=== PATIENT | male | born 1970 | race Caucasian/White ===

== ENCOUNTER 2018-07-07 13:11 | Emergency (ER) | payer OTHER, SELFPAY ==
[2018-07-07] VITALS (25 sets, daily range): BP systolic 104–136; BP diastolic 61–98; PULSE 70–108; RESP 9–22; TEMP 36.8; O2SAT 93–98
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
[2018-07-07 14:10] LABS: Abs Immature Grans 0.03 k/cumm (0.0-0.09); Absolute Basophil Count 0.03 k/cumm (0.0-0.2); Absolute Eosinophil Count 0.08 k/cumm (0.0-0.7); Absolute Lymphocyte Count 1.05 k/cumm (1.2-3.4); Absolute Neutrophil Count 10.59 k/cumm (1.2-6.7); Basophils % 0.2; Eosinophils % 0.6; HCT 40.1 % (40.0-50.0); HGB 13.3 g/dL (13.5-17.5); Immature Grans % 0.2; Lymphocytes % 8.2; Mean Corp. HGB Concentration 33.2 g/dL (32.0-36.0); Mean Corpuscular Hemoglobin 29.7 pg (27.0-33.0); Mean Corpuscular Volume 89.5 fL (80-95); Mean Platelet Volume 10.3 fL (8.0-11.0); Monocytes % 7.8; Platelet Count 272 x1000/uL (130-400); RBC 4.48 m/cumm (4.50-6.00); RBC Distribution Width 14.7 % (11.8-14.1); White Blood Cell Count 12.76 k/cumm (4.4-10.8)
[2018-07-07 14:27] LABS: ALT 19 U/L (12-78); AST 25 U/L (15-37); Albumin 3.5 g/dL (3.4-5.0); Alkaline Phosphatase 88 U/L (46-116); Anion Gap 10.4 mmol/L (3-11); BUN 13 mg/dL (7-18); Bilirubin, Total 0.4 mg/dL (0.2-1.0); CO2 28.6 mmol/L (21.0-32.0); CREATININE 1.19 mg/dL (0.70-1.30); Calcium 8.7 mg/dL (8.5-10.1); Chloride 97 mmol/L (98-107); Glucose 129 mg/dL (70-100); Potassium 3.7 mmol/L (3.5-5.1); Sodium 136 mmol/L (136-145)
[2018-07-07] MEDS: Normal Saline 1,000 ML 1000 ML IV (14:27)
--- NOTE | 2018-07-07 14:27 | DI.RAD_ITS ---
SYMPTOMS/DIAGNOSIS: SYNCOPE PA AND LATERAL CHEST: There are no prior comparison exams. The heart size is normal. The aorta is tortuous. The lungs appear clear. IMPRESSION: No acute abnormality.
[2018-07-07 14:34] LABS: Troponin I < 0.02 ng/mL (0.00-0.06)
[2018-07-07 14:43] LABS: Prothrombin Time 19.9 sec (9.3-11.0)
[2018-07-07 14:54] LABS: D-Dimer 292 ng/mlFEU (<500)
[2018-07-07] MEDS: Oseltamivir 75 MG CAP PO (16:03)
--- NOTE | 2018-07-07 16:04 | NUR.NOTE ---
patient medicated per MD ORDER Nursing Note:
== END 2018-07-07 16:24 | disposition home or self-care (01) ==
PROVIDERS: Emergency Provider Student in an Organized Health Care Education/Training Program; PCP Physician Assistant Medical
DX: R55 Syncope and collapse (principal); J11.89 Influenza due to unidentified influenza virus with other manifestations; Z53.29 Procedure and treatment not carried out because of patient's decision for other reasons; Z86.718 Personal history of other venous thrombosis and embolism; Z79.01 Long term (current) use of anticoagulants
CPT/HCPCS: 36415; 36416; 80053; 82962; 87449; 93005; 96360; 99285; 71046; 84484; 85025; 85379; 85610; 93010; 99284

== ENCOUNTER 2020-01-27 11:03 | Outpatient (REF) | payer OTHER, SELFPAY ==
[2020-01-27 21:30] LABS: Absolute Basophil Count 0.08 10^3/uL (0.0-0.2); Absolute Eosinophil Count 0.52 10^3/uL (0.0-0.7); Absolute Lymphocyte Count 2.58 10^3/uL (1.2-3.4); Absolute Monocyte Count 0.74 10^3/uL (0.1-0.8); Absolute Neutrophil Count 2.84 10^3/uL (1.2-6.7); Basophils % 1.2; Eosinophils % 7.7; HCT 39.4 % (40.0-50.0); HGB 12.8 g/dL (13.5-17.5); Lymphocytes % 38.2; MCH 30.3 pg (27.0-33.0); MCHC 32.5 % (32.0-36.0); MCV 93.1 fL (80-95); MPV 10.7 fL (8.0-11.0); Monocytes % 10.9; Nucleated RBC 0 %; Platelet Count 298 10^3/uL (130-400); RBC 4.23 10^6/uL (4.36-5.78); RDW 13.7 % (11.8-14.1); WBC 6.76 10^3/uL (4.4-10.8)
[2020-01-27 21:54] LABS: ALT 24 U/L (16-63); AST 24 U/L (15-37); Albumin 3.8 g/dL (3.4-5.0); Alkaline Phosphatase 83 U/L (46-116); BUN 17 mg/dL (7-18); Bilirubin, Total 0.6 mg/dL (0.2-1.0); CREATININE 0.82 mg/dL (0.70-1.30); Chloride 103 mmol/L (98-107); Glucose 91 mg/dL (74-106); Potassium 5.1 mmol/L (3.5-5.1); Sodium 140 mmol/L (136-145); Total Protein 7.3 g/dL (6.4-8.2)
== END 2020-01-27 11:23 ==
LOC: NCHCN 11:03
PROVIDERS: PCP Physician Assistant Medical; Visit Provider Physician Assistant Medical
DX: R60.0 Localized edema (principal)
CPT/HCPCS: 80053; 85025

== ENCOUNTER 2021-03-14 10:11 | Outpatient (REF) | payer OTHER, SELFPAY ==
[2021-03-14 15:44] LABS: INR 2.5 (0.9-1.1); Prothrombin Time 24.8 sec (9.3-11.0)
[2021-03-14 16:41] LABS: ALT 24 U/L (16-63); AST 24 U/L (15-37); Albumin 4.1 g/dL (3.4-5.0); Alkaline Phosphatase 85 U/L (46-116); Anion Gap 8.1 mmol/L (3-11); BUN 22 mg/dL (7-18); Bilirubin, Total 0.4 mg/dL (0.2-1.0); CO2 25.9 mmol/L (21.0-32.0); CREATININE 0.9 mg/dL (0.70-1.30); Calcium 9.2 mg/dL (8.5-10.1); Calculated LDL 113 mg/dL (<100); Chloride 104 mmol/L (98-107); Cholesterol 196 mg/dL (<200); Glucose 104 mg/dL (74-106); HDL Cholesterol 76 mg/dL (40-60); Potassium 4.5 mmol/L (3.5-5.1); Sodium 138 mmol/L (136-145); Total Protein 7.6 g/dL (6.4-8.2); Triglyceride 36 mg/dL (<150)
== END 2021-03-14 10:12 | disposition home or self-care (01) ==
LOC: NCHCN 10:11
PROVIDERS: PCP Physician Assistant Medical; Visit Provider Physician Assistant Medical
DX: Z00.8 Encounter for other general examination (principal)
CPT/HCPCS: 80053; 80061; 85610

== ENCOUNTER 2021-07-18 15:19 | Outpatient (REF) | payer OTHER, SELFPAY ==
[2021-07-18 19:21] LABS: Abs Immature Grans 0.01 10^3/uL (0.0-0.06); Absolute Basophil Count 0.11 10^3/uL (0.0-0.2); Absolute Eosinophil Count 0.48 10^3/uL (0.0-0.7); Absolute Monocyte Count 0.51 10^3/uL (0.1-0.8); Absolute Neutrophil Count 2.14 10^3/uL (1.2-6.7); Basophils % 1.8; Eosinophils % 8.1; HCT 40.8 % (40.0-50.0); Immature Grans % 0.2; Lymphocytes % 45.4; MCH 29.7 pg (27.0-33.0); MCHC 31.9 % (32.0-36.0); MCV 93.4 fL (80-95); MPV 10.8 fL (8.0-11.0); Monocytes % 8.6; Neutrophils % 35.9; Nucleated RBC 0 %; Platelet Count 304 10^3/uL (130-400); RBC 4.37 10^6/uL (4.36-5.78); RDW-SD 48.3 fL; WBC 5.95 10^3/uL (4.4-10.8)
[2021-07-18 19:28] LABS: Anion Gap 9.7 mmol/L (3-11); BUN 15 mg/dL (7-18); CO2 24.3 mmol/L (21.0-32.0); CREATININE 0.8 mg/dL (0.70-1.30); Chloride 102 mmol/L (98-107); Glucose 93 mg/dL (74-106); Potassium 4.5 mmol/L (3.5-5.1); Sodium 136 mmol/L (136-145)
== END 2021-07-18 15:20 | disposition home or self-care (01) ==
LOC: NCHCN 15:19
PROVIDERS: PCP Physician Assistant Medical; Visit Provider Physician Assistant Medical
DX: I10 Essential (primary) hypertension (principal); Z79.01 Long term (current) use of anticoagulants
CPT/HCPCS: 80048; 83036; 85025

== ENCOUNTER 2021-07-19 09:06 | Outpatient (REF) | payer OTHER, SELFPAY | END 2021-07-19 09:07 | disposition home or self-care (01) | LOC: NCHCN 09:06 | PROVIDERS: PCP Physician Assistant Medical; Visit Provider Physician Assistant Medical ==

== ENCOUNTER 2022-03-20 08:50 | Outpatient (REF) | payer OTHER, SELFPAY ==
[2022-03-20 16:03] LABS: HCT 42.5 % (40.0-50.0); HGB 14.1 g/dL (13.5-17.5); MCH 30.2 pg (27.0-33.0); MCHC 33.2 % (32.0-36.0); MCV 91 fL (80-95); MPV 10.7 fL (8.0-11.0); Platelet Count 303 10^3/uL (130-400); RBC 4.67 10^6/uL (4.36-5.78); RDW 13.8 % (11.8-14.1); RDW-SD 46.1 fL; WBC 6.31 10^3/uL (4.4-10.8)
[2022-03-20 16:05] LABS: Hemoglobin A1C 6.1 % (<5.7)
[2022-03-20 16:13] LABS: ALT 29 U/L (16-63); AST 30 U/L (15-37); Albumin 4.1 g/dL (3.4-5.0); Alkaline Phosphatase 88 U/L (46-116); Anion Gap 8.8 mmol/L (3-11); BUN 14 mg/dL (7-18); Bilirubin, Total 0.5 mg/dL (0.2-1.0); CO2 27.2 mmol/L (21.0-32.0); CREATININE 0.8 mg/dL (0.70-1.30); Calcium 9.4 mg/dL (8.5-10.1); Calculated LDL 108 mg/dL (<100); Chloride 100 mmol/L (98-107); Cholesterol 202 mg/dL (<200); Estimated GFR 105.82 (mL/min/1.73m2); Glucose 96 mg/dL (74-106); HDL Cholesterol 78 mg/dL (40-60); Potassium 4.3 mmol/L (3.5-5.1); Sodium 136 mmol/L (136-145); Total Protein 8.1 g/dL (6.4-8.2); Triglyceride 83 mg/dL (<150)
== END 2022-03-20 08:51 | disposition home or self-care (01) ==
LOC: NCHCN 08:50
PROVIDERS: PCP Physician Assistant Medical; Visit Provider Physician Assistant Medical
DX: Z00.00 Encounter for general adult medical examination without abnormal findings (principal); R73.03 Prediabetes; R60.0 Localized edema; Z79.01 Long term (current) use of anticoagulants; I10 Essential (primary) hypertension; Z86.72 Personal history of thrombophlebitis
CPT/HCPCS: 80053; 80061; 85027; 83036

== ENCOUNTER 2023-04-02 18:19 | Outpatient (REF) | payer OTHER, SELFPAY ==
[2023-04-02 16:20] LABS: HCT 39.9 % (40.0-50.0); HGB 13.4 g/dL (13.5-17.5); MCH 30.7 pg (27.0-33.0); MCHC 33.6 % (32.0-36.0); MCV 91 fL (80-95); MPV 10.9 fL (8.0-11.0); Platelet Count 271 10^3/uL (130-400); RBC 4.37 10^6/uL (4.36-5.78); RDW 13.3 % (11.8-14.1); RDW-SD 44.7 fL
[2023-04-02 16:50] LABS: ALT 24 U/L (16-63); AST 30 U/L (15-37); Albumin 3.9 g/dL (3.4-5.0); Alkaline Phosphatase 86 U/L (46-116); Anion Gap 9.3 mmol/L (3-11); BUN 14 mg/dL (7-18); Bilirubin, Total 0.6 mg/dL (0.2-1.0); CO2 25.7 mmol/L (21.0-32.0); CREATININE 0.9 mg/dL (0.70-1.30); Calcium 9.2 mg/dL (8.5-10.1); Calculated LDL 106 mg/dL (<100); Chloride 102 mmol/L (98-107); Cholesterol 191 mg/dL (<200); Estimated GFR 101.49 (mL/min/1.73m2); Glucose 94 mg/dL (74-106); HDL Cholesterol 77 mg/dL (40-60); Potassium 4.1 mmol/L (3.5-5.1); Sodium 137 mmol/L (136-145); TSH (W/Ref FT4) 1.65 uIU/mL (0.36-3.74); Total Protein 7.7 g/dL (6.4-8.2); Triglyceride 41 mg/dL (<150)
[2023-04-02 17:19] LABS: Hemoglobin A1C 6.1 % (<5.7)
== END 2023-04-02 18:20 | disposition home or self-care (01) ==
LOC: NCHCN 18:19
PROVIDERS: PCP Physician Assistant Medical; Visit Provider Physician Assistant Medical
DX: I10 Essential (primary) hypertension (principal); R73.03 Prediabetes; R53.83 Other fatigue
CPT/HCPCS: 80053; 80061; 85027; 83036; 84443

== ENCOUNTER 2024-04-06 21:22 | Outpatient (REF) | payer OTHER, SELFPAY ==
[2024-04-06 19:08] LABS: HCT 42.5 % (40.0-50.0); HGB 13.8 g/dL (13.5-17.5); MCH 29.9 pg (27.0-33.0); MCHC 32.5 % (32.0-36.0); MCV 92 fL (80-95); MPV 10.7 fL (8.0-11.0); Platelet Count 277 10^3/uL (130-400); RBC 4.62 10^6/uL (4.36-5.78); RDW 13.4 % (11.8-14.1); RDW-SD 45.3 fL; WBC 7.19 10^3/uL (4.4-10.8)
[2024-04-06 19:50] LABS: ALT 24 U/L (16-63); AST 22 U/L (15-37); Alkaline Phosphatase 91 U/L (46-116); BUN 14 mg/dL (7-18); Bilirubin, Total 0.58 mg/dL (0.2-1.0); CREATININE 0.8 mg/dL (0.70-1.30); Calcium 9.6 mg/dL (8.5-10.1); Calculated LDL 113 mg/dL (<100); Chloride 103 mmol/L (98-107); Cholesterol 206 mg/dL (<200); Estimated GFR 104.51 (mL/min/1.73m2); Glucose 94 mg/dL (74-106); HDL Cholesterol 79 mg/dL (40-60); Potassium 4.7 mmol/L (3.5-5.1); Sodium 141 mmol/L (136-145); Total Protein 7.6 g/dL (6.4-8.2); Triglyceride 70 mg/dL (<150)
== END 2024-04-06 21:23 | disposition home or self-care (01) ==
LOC: NCHCN 21:22
PROVIDERS: PCP Physician Assistant Medical; Visit Provider Physician Assistant Medical
DX: Z00.00 Encounter for general adult medical examination without abnormal findings (principal); Z86.718 Personal history of other venous thrombosis and embolism; R73.03 Prediabetes
CPT/HCPCS: 80053; 80061; 85027; 83036

== ENCOUNTER 2024-09-08 16:29 | Outpatient (CLI) | payer OTHER, SELFPAY ==
--- NOTE | 2024-09-08 13:30 | DI.US_ITS ---
APPROVED REPORT EXAM: Comprehensive 2D, Doppler, and color-flow Echocardiogram Patient Location: Out-Patient Television Program Director: Pascual Adams RDCS (AE) Indications: Essential hypertension, possible recent TIA, evaluate for LV function, r/o valve disease Other Information Study Quality: Good Conclusion Mild concentric left ventricular hypertrophy. Ejection fraction is 60 to 65%. Wall motion is normal Normal right ventricular size and function Moderately enlarged left atrium. Normal right atrial size Trileaflet aortic valve without stenosis or regurgitation Mitral annular calcification. Mildly thickened mitral leaflets. Mild mitral regurgitation Mild tricuspid regurgitation. Estimated right ventricular systolic pressure is 35 mmHg Dilated aortic root and ascending aorta Wall motion Left Ventricle The left ventricle is normal size. The left ventricular systolic function is normal. The left ventric ular ejection fraction is within the normal range. Mild concentric left ventricular hypertrophy. Ther e is normal LV segmental wall motion. There is no ventricular septal defect visualized. LVEF is 60-65 %. Right Ventricle The right ventricle is normal size. The right ventricular systolic function is normal. Atria Left atrium is moderately dilated. The right atrium size is normal. The interatrial septum is intact with no evidence for an atrial septal defect. Aortic Valve The aortic valve is normal in structure. Aortic valve is trileaflet. There is no aortic valvular sten osis. No aortic regurgitation is present. Mitral Valve Mitral valve leaflets are mildly thickened. Mild mitral annular calcification. No evidence of mitral valve stenosis. Mild mitral regurgitation Tricuspid Valve The tricuspid valve is normal in structure. There is no tricuspid valve stenosis. Mild tricuspid regu rgitation. The RVSP is 35 mmHg. Pulmonic Valve The pulmonary valve is normal in structure. There is no pulmonic valvular stenosis. There is no pulmo hero valvular regurgitation. Great Vessels Aortic root is moderately dilated. The ascending aorta is moderately dilated. Aortic arch is normal i n caliber. IVC is normal in size and collapses >50% with inspiration. Pericardium There is no pericardial effusion. 2D Dimensions IVSD d PLAX 1.35 cm M: 0.6-1.2 Ao Root d 4.06 cm M: 3.1 - 3.7 LVPW d PLAX 1.38 cm M: 0.6 - 1.2 Ao Asc Diam d 4.09 cm M: 2.6 - 3.4 LVID d PLAX 5.69 cm M: 4.2 - 5.8 LVDs 3.62 cm M: 2.5 - 4.0 LV EF Teichholz 65.4 % FS 36.34 % LV EDV (Teich) 159.1 mL LV ESV (Teich) 55.1 mL Stroke Vol Index (Teich) 47.27 M-Mode TAPSE 2.39 cm (M/F) >1.7 Auto EF LV EDV A4C 201.9 mL LV EDV A2C 186.1 mL LV EDV BP 209.1 mL LV ESV A4C 73.4 mL LV ESV A2C 72.0 mL LV ESV BP 79.8 mL LVEF(%) A4C 63.6 % LVEF(%) A2C 61.3 % LVEF(%) BP 61.8 % LV SV A4C 128.5 ml LV SV A2C 114.1 ml LV SV BP 129.3 ml LV CO A4C 7.7 L/min LV CO A2C 7.0 L/min LV CO BP 7.4 L/min HR A4C 59.61 BPM HR A2C 61.74 BPM LV EDV Index (BP) LA Volume LA Length A4C 7.0 cm LA Length A2C 6.1 cm LA Area A4C s 22.11 cm2 LA Area A2C s 20.88 cm2 LA Vol A4C A-L 59.34 mL LA Vol A2C A-L 60.18 mL LA Vol Biplane A-L 63.7 mL LA Vol/BSA A4C A-L LA Vol/BSA A2C A-L LA Vol/BSA BP A-L 29.0 mL/m2 LA Vol A4C MOD 53.9 mL LA Vol A2C MOD 58.5 mL LA Vol BP MOD 58.2 mL RA Volume RA Area A4C 9.5 cm2 RA ESV A4C (A-L) 17.1mL RA Vol/BSA A4C A-L RA Length A4C 4.5 cm RA ESV A4C (MOD) 17.5mL LV Diastology MV E' medial 0.077 (>0.07 m/s) MV E Vmax 0.56 (0.4-1.3 m/s) MV E/E' MED 7.34 (<14) MV A Vmax 0.70 (0.4-1.3 m/s) MV E' lateral 0.097 (>0.1 m/s) E/A Ratio 0.8 MV E/E' LAT 5.79 (<14) MV E' Average 0.087 m/s MV E/E'(average) 6.47 Aortic Valve AoV Vmax 1.21 m/s LVOT Vmax 1.18 m/s AoV Peak Grad 5.9 mmHg LVOT Peak Grad 5.5 mmHg AoV Area (Vmax) 4.25 cm2 LVOT VTI 0.277 m AoV VTI 0.288 m LVOT Mean Grad 3.4 mmHg AoV Mean Wilmer. 0.93 m/s LVOT SV 121.30 mL AoV Mean Grad 3.8 mmHg LVOT Diam s 2.35 cm AoV Area (VTI) 4.21 cm2 AV Regurg Peak Gr. 5.88 mmHg Velocity Ratio 0.98 Mitral Valve MV DT 298 (160-240 msec) Pulmonary Valve PV Vmax 0.87 (0.5-1.5 m/s) RVOT Vmax 0.70 m/s PV Peak Grad 3.1 mmHg RVOT Peak Gr. 2.0 mmHg PV Mean Wilmer 0.56 m/s RVOT VTI 0.133 m PV Mean Grad 1.5 mmHg RVOT Mean Gr. 1.1 mmHg Tricuspid Valve RA Pressure 3.00 mmHg TR Vmax 2.82 m/s TV S' 0.17 m/s TR Peak Grad 31.8 mmHg RVSP (TR) 34.8 mmHg
== END 2024-09-08 16:49 ==
PROVIDERS: PCP Physician Assistant Medical; Visit Provider Family Medicine
DX: I10 Essential (primary) hypertension (principal); I51.7 Cardiomegaly
CPT/HCPCS: 93306

== ENCOUNTER 2024-11-09 16:12 | Outpatient (REF) | payer OTHER, SELFPAY ==
[2024-11-09 15:46] LABS: Hemoglobin A1C 6.1 % (<5.7)
[2024-11-09 15:53] LABS: ALT 22 U/L (16-63); AST 23 U/L (15-37); Alkaline Phosphatase 91 U/L (46-116); Anion Gap 6.5 mmol/L (3-11); BUN 19 mg/dL (7-18); Bilirubin, Total 0.4 mg/dL (0.2-1.0); CO2 28.5 mmol/L (21.0-32.0); CREATININE 0.7 mg/dL (0.70-1.30); Calcium 9.2 mg/dL (8.5-10.1); Calculated LDL 69 mg/dL (<100); Chloride 103 mmol/L (98-107); Cholesterol 148 mg/dL (<200); Estimated GFR 108.14 (mL/min/1.73m2); Glucose 103 mg/dL (74-106); HDL Cholesterol 70 mg/dL (>or=40); Potassium 5.5 mmol/L (3.5-5.1); Sodium 138 mmol/L (136-145); Total Protein 7.5 g/dL (6.4-8.2); Triglyceride 46 mg/dL (<150)
[2024-11-09 16:30] LABS: Creatine Kinase 230 U/L (39-308); Uric Acid 4.3 mg/dL (3.5-7.2)
== END 2024-11-09 16:13 | disposition home or self-care (01) ==
LOC: NCHCN 16:12
PROVIDERS: PCP Physician Assistant Medical; Visit Provider Physician Assistant Medical
DX: I10 Essential (primary) hypertension (principal); E78.5 Hyperlipidemia, unspecified; R73.03 Prediabetes; M79.671 Pain in right foot
CPT/HCPCS: 80053; 80061; 82550; 83036; 84550